=== PATIENT | male | born 1975 | race Caucasian/White ===

== ENCOUNTER 2018-06-25 07:13 | Inpatient (IN) | payer SELFPAY ==
[2018-06-25 07:39] LABS: ADD MAN DIFF? NO
[2018-06-25 07:42] LABS: WHITE BLOOD COUNT 8.7 10^3/ul (4.8-10.8)
[2018-06-25 07:42] LABS: BASOPHILS % 0.3 % (0.0-2.0); EOSINOPHILS # 0.1 10^3/ul (0.0-0.5); EOSINOPHILS % 1.1 % (0.0-7.0); HEMATOCRIT 43.5 % (42.0-52.0); HEMOGLOBIN 15.1 g/dl (14.0-18.0); LYMPHOCYTES # 1.8 10^3/ul (0.8-2.9); MEAN CORPUSCULAR HEMOGLOBIN 29.7 pg (29.0-33.0); MEAN CORPUSCULAR HGB CONC 34.7 g/dl (32.0-37.0); MEAN CORPUSCULAR VOLUME 85.5 fl (82.0-101.0); MEAN PLATELET VOLUME 9.5 fl (7.4-10.4); MONOCYTE # 0.7 10^3/ul (0.3-0.9); MONOCYTES % 7.8 % (0.0-11.0); NEUTROPHIL # 6.2 10^3/ul (1.6-7.5); NEUTROPHILS % 70.6 % (39.0-77.0); PLATELET COUNT 218 10^3/UL (140-415); RED BLOOD COUNT 5.09 10^6/ul (4.70-6.10); RED CELL DISTRIBUTION WIDTH 12.1 % (11.5-14.5)
[2018-06-25] MEDS ORDERED: ONDANSETRON 4 MG INJ (07:43)
[2018-06-25] MEDS ORDERED: morphine 4 MG/ML VIAL (07:44)
[2018-06-25 07:58] LABS: ALANINE AMINOTRANSFERASE 103 IU/L (13-69); ALBUMIN 4.5 g/dl (3.3-4.9); ALKALINE PHOSPHATASE 137 IU/L (42-121); ANION GAP 11 (5-13); ASPARTATE AMINO TRANSFERASE 98 IU/L (15-46); BILIRUBIN,INDIRECT 1.4 mg/dl (0-1.1); BILIRUBIN,TOTAL 1.4 mg/dl (0.2-1.3); BLOOD UREA NITROGEN 9 mg/dl (7-20); CALCIUM 10.1 mg/dl (8.4-10.2); CARBON DIOXIDE 27 mmol/L (21-31); CHLORIDE 99 mmol/L (97-110); CREATININE 0.68 mg/dl (0.61-1.24); Estimated GFR > 60 mL/min (>60); GLUCOSE 130 mg/dl (70-220); POTASSIUM 3.6 mmol/L (3.5-5.1); SODIUM 137 mmol/L (135-144); TOTAL PROTEIN 7.6 g/dl (6.1-8.1)
[2018-06-25 08:01] LABS: PROTIME 13.3 Sec (11.9-14.9)
[2018-06-25] MEDS: morphine 4 MG/ML VIAL IV ×2 (08:01→10:03)
[2018-06-25] MEDS: ONDANSETRON 4 MG INJ IV ×3 (08:01→17:39)
[2018-06-25 08:02] LABS: PARTIAL THROMBOPLASTIN TIME 28.5 Sec (23.0-35.0)
[2018-06-25] MEDS: IOHEXOL 300MG/ML 150 ML BTL (08:26)
[2018-06-25] MEDS: SOD CHLORIDE 0.9% 100 ML (08:26)
[2018-06-25] MEDS: SOD CHLORIDE 0.9% 1,000 ML IV ×2 (10:03→18:45)
[2018-06-25 10:23] LABS: LIPASE 3475 U/L (23-300)
[2018-06-25] MEDS ORDERED: FENTAnyl 50 MCG/ML VIAL (10:46)
[2018-06-25 11:16] LABS: ETHANOL < 10.0 mg/dl (0-0)
[2018-06-25] MEDS: FENTAnyl 50 MCG/ML VIAL IV (11:37)
[2018-06-25] MEDS ORDERED: ACETAMINOPHEN 325 MG TAB PO (12:00)
[2018-06-25] MEDS ORDERED: HYDROmorphONE 1 MG/ML SYG (13:43)
[2018-06-25] MEDS: HYDROmorphONE 0.5 MG/0.5 ML SYG IV (14:11)
[2018-06-25] MEDS ORDERED: ONDANSETRON 4 MG INJ IV (15:00)
[2018-06-25] MEDS ORDERED: NACL 0.9% 3 ML SYG IV (15:00)
[2018-06-25 15:30] LABS: HAAIG REFLEX REFLEX FILED
[2018-06-25] MEDS: HYDROmorphONE 2 MG/ML SYG IV ×3 (15:57→22:01)
[2018-06-25 16:29] LABS: HEPATITIS B SURFACE ANTIGEN NEGATIVE (NEGATIVE)
[2018-06-25 16:47] LABS: HEPATITIS B CORE ANTIBODY NEGATIVE (NEGATIVE); HEPATITIS C VIRAL ANTIBODY NEGATIVE (NEGATIVE)
[2018-06-25] MEDS: HYDROmorphONE 1 MG/ML SYG IV (17:40)
[2018-06-25] MEDS: PANTOPRAZOLE 40 MG INJ IV (18:45)
[2018-06-26] MEDS: SOD CHLORIDE 0.9% 1,000 ML IV ×5 (01:24→23:26)
[2018-06-26 05:05] LABS: ADD MAN DIFF? NO
[2018-06-26 05:16] LABS: BASOPHILS % 0.2 % (0.0-2.0); EOSINOPHILS # 0.2 10^3/ul (0.0-0.5); EOSINOPHILS % 2.6 % (0.0-7.0); HEMATOCRIT 39.9 % (42.0-52.0); HEMOGLOBIN 13.3 g/dl (14.0-18.0); LYMPHOCYTES # 1.1 10^3/ul (0.8-2.9); LYMPHOCYTES % 17.7 % (15.0-51.0); MEAN CORPUSCULAR HEMOGLOBIN 29.4 pg (29.0-33.0); MEAN CORPUSCULAR HGB CONC 33.3 g/dl (32.0-37.0); MEAN CORPUSCULAR VOLUME 88.3 fl (82.0-101.0); MEAN PLATELET VOLUME 9.9 fl (7.4-10.4); MONOCYTE # 0.4 10^3/ul (0.3-0.9); MONOCYTES % 6.9 % (0.0-11.0); NEUTROPHIL # 4.5 10^3/ul (1.6-7.5); NEUTROPHILS % 72.3 % (39.0-77.0); PLATELET COUNT 186 10^3/UL (140-415); RED BLOOD COUNT 4.52 10^6/ul (4.70-6.10); RED CELL DISTRIBUTION WIDTH 12.4 % (11.5-14.5)
[2018-06-26 05:16] LABS: WHITE BLOOD COUNT 6.2 10^3/ul (4.8-10.8)
[2018-06-26] MEDS: PANTOPRAZOLE 40 MG INJ IV ×2 (05:30→22:03)
[2018-06-26] MEDS: HYDROmorphONE 2 MG/ML SYG IV ×4 (05:33→20:32)
[2018-06-26 05:36] LABS: ALANINE AMINOTRANSFERASE 141 IU/L (13-69); ALBUMIN 3.9 g/dl (3.3-4.9); ALBUMIN/GLOBULIN RATIO 1.21; ALKALINE PHOSPHATASE 174 IU/L (42-121); ANION GAP 8 (5-13); ASPARTATE AMINO TRANSFERASE 212 IU/L (15-46); BILIRUBIN,INDIRECT 1.4 mg/dl (0-1.1); BILIRUBIN,TOTAL 1.4 mg/dl (0.2-1.3); BLOOD UREA NITROGEN 6 mg/dl (7-20); CALCIUM 9.1 mg/dl (8.4-10.2); CARBON DIOXIDE 26 mmol/L (21-31); CHLORIDE 104 mmol/L (97-110); CHOLESTEROL 165 mg/dl (100-200); CREATININE 0.64 mg/dl (0.61-1.24); Estimated GFR > 60 mL/min (>60); GLUCOSE 108 mg/dl (70-220); HDL CHOLESTEROL 41 mg/dl (27-67); LDL CHOLESTEROL,CALCULATED 31 mg/dl; LIPASE 1478 U/L (23-300); MAGNESIUM 2.1 mg/dl (1.7-2.5); PHOSPHORUS 3.2 mg/dl (2.5-4.9); POTASSIUM 4.1 mmol/L (3.5-5.1); SODIUM 138 mmol/L (135-144); TOTAL PROTEIN 7.1 g/dl (6.1-8.1); TRIGLYCERIDES 464 mg/dl (0-149)
[2018-06-26 08:01] LABS: HEMOGLOBIN A1C 6.1 % (0-5.9)
[2018-06-26] MEDS: ONDANSETRON 4 MG INJ IV (11:28)
[2018-06-26] MEDS: FISH OIL 1,000 MG CAP PO (20:32)
[2018-06-26] MEDS: GEMFIBROZIL 600 MG TAB PO (20:32)
[2018-06-27] MEDS: HYDROmorphONE 2 MG/ML SYG IV ×4 (02:26→20:31)
[2018-06-27 05:19] LABS: ADD MAN DIFF? NO
[2018-06-27 05:27] LABS: BASOPHILS % 0.3 % (0.0-2.0); EOSINOPHILS # 0.4 10^3/ul (0.0-0.5); HEMATOCRIT 39.8 % (42.0-52.0); HEMOGLOBIN 13.3 g/dl (14.0-18.0); LYMPHOCYTES # 1.7 10^3/ul (0.8-2.9); LYMPHOCYTES % 26.9 % (15.0-51.0); MEAN CORPUSCULAR HEMOGLOBIN 29.4 pg (29.0-33.0); MEAN CORPUSCULAR HGB CONC 33.4 g/dl (32.0-37.0); MEAN CORPUSCULAR VOLUME 88.1 fl (82.0-101.0); MEAN PLATELET VOLUME 10.1 fl (7.4-10.4); MONOCYTE # 0.5 10^3/ul (0.3-0.9); MONOCYTES % 7.5 % (0.0-11.0); NEUTROPHIL # 3.7 10^3/ul (1.6-7.5); NEUTROPHILS % 58.7 % (39.0-77.0); PLATELET COUNT 180 10^3/UL (140-415); RED BLOOD COUNT 4.52 10^6/ul (4.70-6.10); RED CELL DISTRIBUTION WIDTH 12.2 % (11.5-14.5)
[2018-06-27 05:27] LABS: WHITE BLOOD COUNT 6.3 10^3/ul (4.8-10.8)
[2018-06-27 05:44] LABS: ALANINE AMINOTRANSFERASE 102 IU/L (13-69); ALBUMIN 3.9 g/dl (3.3-4.9); ALBUMIN/GLOBULIN RATIO 1.11; ALKALINE PHOSPHATASE 192 IU/L (42-121); ANION GAP 11 (5-13); ASPARTATE AMINO TRANSFERASE 99 IU/L (15-46); BILIRUBIN,INDIRECT 1.1 mg/dl (0-1.1); BILIRUBIN,TOTAL 1.1 mg/dl (0.2-1.3); BLOOD UREA NITROGEN 6 mg/dl (7-20); CALCIUM 8.8 mg/dl (8.4-10.2); CARBON DIOXIDE 21 mmol/L (21-31); CHLORIDE 106 mmol/L (97-110); CREATININE 0.63 mg/dl (0.61-1.24); Estimated GFR > 60 mL/min (>60); GLUCOSE 89 mg/dl (70-220); LIPASE 670 U/L (23-300); SODIUM 138 mmol/L (135-144); TOTAL PROTEIN 7.4 g/dl (6.1-8.1)
[2018-06-27] MEDS: PANTOPRAZOLE 40 MG INJ IV ×2 (06:13→17:25)
[2018-06-27] MEDS: SOD CHLORIDE 0.9% 1,000 ML IV ×3 (06:14→20:31)
[2018-06-27] MEDS: GEMFIBROZIL 600 MG TAB PO ×2 (08:20→20:27)
[2018-06-27] MEDS: FISH OIL 1,000 MG CAP PO ×2 (08:20→20:27)
[2018-06-27] MEDS: ACETAMINOPHEN 325 MG TAB PO ×2 (08:25→17:25)
[2018-06-27] MEDS ORDERED: THIAMINE 200 MG INJ IM (13:00)
[2018-06-27] MEDS: THIAMINE 200 MG INJ IM (14:52)
[2018-06-28] MEDS: SOD CHLORIDE 0.9% 1,000 ML IV ×3 (03:06→23:22)
[2018-06-28] MEDS: PANTOPRAZOLE 40 MG INJ IV ×2 (05:56→17:59)
[2018-06-28 06:15] LABS: ALANINE AMINOTRANSFERASE 88 IU/L (13-69); ALBUMIN 3.6 g/dl (3.3-4.9); ALBUMIN/GLOBULIN RATIO 1.24; ALKALINE PHOSPHATASE 154 IU/L (42-121); ANION GAP 8 (5-13); ASPARTATE AMINO TRANSFERASE 72 IU/L (15-46); BILIRUBIN,INDIRECT 0.7 mg/dl (0-1.1); BILIRUBIN,TOTAL 0.7 mg/dl (0.2-1.3); BLOOD UREA NITROGEN 3 mg/dl (7-20); CALCIUM 9.5 mg/dl (8.4-10.2); CARBON DIOXIDE 22 mmol/L (21-31); CHLORIDE 109 mmol/L (97-110); CREATININE 0.59 mg/dl (0.61-1.24); Estimated GFR > 60 mL/min (>60); GLUCOSE 95 mg/dl (70-220); LIPASE 1148 U/L (23-300); SODIUM 139 mmol/L (135-144); TOTAL PROTEIN 6.5 g/dl (6.1-8.1)
[2018-06-28 06:29] LABS: CHOLESTEROL 195 mg/dl (100-200)
[2018-06-28 06:29] LABS: CHOL/HDL RATIO 5.1 RATIO; HDL CHOLESTEROL 38 mg/dl (27-67); LDL CHOLESTEROL,CALCULATED 110 mg/dl; TRIGLYCERIDES 234 mg/dl (0-149)
[2018-06-28] MEDS: FISH OIL 1,000 MG CAP PO ×2 (08:41→23:22)
[2018-06-28] MEDS: GEMFIBROZIL 600 MG TAB PO ×2 (08:42→23:22)
[2018-06-28] MEDS: THIAMINE 100 MG TAB PO (08:42)
[2018-06-28] MEDS: ACETAMINOPHEN 325 MG TAB PO (18:01)
[2018-06-29] MEDS: ZOLPIDEM 5 MG TAB PO (02:17)
[2018-06-29 05:41] LABS: ALANINE AMINOTRANSFERASE 90 IU/L (13-69); ALBUMIN 4.1 g/dl (3.3-4.9); ALBUMIN/GLOBULIN RATIO 1.28; ALKALINE PHOSPHATASE 144 IU/L (42-121); ANION GAP 9 (5-13); ASPARTATE AMINO TRANSFERASE 74 IU/L (15-46); BILIRUBIN,INDIRECT 0.7 mg/dl (0-1.1); BILIRUBIN,TOTAL 0.7 mg/dl (0.2-1.3); BLOOD UREA NITROGEN 5 mg/dl (7-20); CARBON DIOXIDE 23 mmol/L (21-31); CHLORIDE 108 mmol/L (97-110); CREATININE 0.69 mg/dl (0.61-1.24); Estimated GFR > 60 mL/min (>60); GLUCOSE 120 mg/dl (70-220); LIPASE 1092 U/L (23-300); POTASSIUM 3.9 mmol/L (3.5-5.1); SODIUM 140 mmol/L (135-144); TOTAL PROTEIN 7.3 g/dl (6.1-8.1)
[2018-06-29] MEDS: THIAMINE 100 MG TAB PO (11:02)
[2018-06-29] MEDS: SOD CHLORIDE 0.9% 500 ML IV (11:02)
[2018-06-29] MEDS: FISH OIL 1,000 MG CAP PO ×2 (11:02→21:53)
[2018-06-29] MEDS: PANTOPRAZOLE 40 MG INJ IV ×2 (11:02→17:53)
[2018-06-29] MEDS: SOD CHLORIDE 0.9% 1,000 ML IV ×2 (12:12→23:29)
[2018-06-29] MEDS: hydrALAzine 20 MG INJ IV (21:53)
[2018-06-29] MEDS: ACETAMINOPHEN 325 MG TAB PO (23:28)
[2018-06-30] MEDS: traZODone 50 MG TAB PO (02:01)
[2018-06-30] MEDS: PANTOPRAZOLE 40 MG INJ IV ×2 (05:21→19:33)
[2018-06-30 06:24] LABS: LIPASE 1055 U/L (23-300)
[2018-06-30 06:28] LABS: ALANINE AMINOTRANSFERASE 76 IU/L (13-69); ALBUMIN 4.1 g/dl (3.3-4.9); ALKALINE PHOSPHATASE 141 IU/L (42-121); ANION GAP 11 (5-13); ASPARTATE AMINO TRANSFERASE 64 IU/L (15-46); BILIRUBIN,INDIRECT 0.8 mg/dl (0-1.1); BILIRUBIN,TOTAL 0.8 mg/dl (0.2-1.3); BLOOD UREA NITROGEN 7 mg/dl (7-20); CALCIUM 9.7 mg/dl (8.4-10.2); CARBON DIOXIDE 21 mmol/L (21-31); CHLORIDE 111 mmol/L (97-110); CREATININE 0.66 mg/dl (0.61-1.24); Estimated GFR > 60 mL/min (>60); GLUCOSE 98 mg/dl (70-220); POTASSIUM 3.4 mmol/L (3.5-5.1); SODIUM 143 mmol/L (135-144); TOTAL PROTEIN 7.5 g/dl (6.1-8.1)
[2018-06-30 06:29] LABS: AMYLASE 152 U/L (11-123)
[2018-06-30] MEDS: THIAMINE 100 MG TAB PO (10:02)
[2018-06-30] MEDS: FISH OIL 1,000 MG CAP PO ×2 (10:03→20:26)
[2018-06-30] MEDS: SOD CHLORIDE 0.9% 1,000 ML IV (13:56)
[2018-06-30] MEDS: ACETAMINOPHEN 325 MG TAB PO (22:13)
[2018-07-01 06:02] LABS: ALANINE AMINOTRANSFERASE 76 IU/L (13-69); ALBUMIN/GLOBULIN RATIO 1.33; ALKALINE PHOSPHATASE 114 IU/L (42-121); ANION GAP 10 (5-13); ASPARTATE AMINO TRANSFERASE 55 IU/L (15-46); BILIRUBIN,INDIRECT 0.8 mg/dl (0-1.1); BILIRUBIN,TOTAL 0.8 mg/dl (0.2-1.3); BLOOD UREA NITROGEN 7 mg/dl (7-20); CALCIUM 9.9 mg/dl (8.4-10.2); CARBON DIOXIDE 24 mmol/L (21-31); CHLORIDE 109 mmol/L (97-110); CREATININE 0.72 mg/dl (0.61-1.24); Estimated GFR > 60 mL/min (>60); GLUCOSE 106 mg/dl (70-220); LIPASE 1323 U/L (23-300); POTASSIUM 3.7 mmol/L (3.5-5.1); SODIUM 143 mmol/L (135-144)
[2018-07-01] MEDS: FISH OIL 1,000 MG CAP PO ×2 (09:14→20:11)
[2018-07-01] MEDS: THIAMINE 100 MG TAB PO (09:15)
[2018-07-01] MEDS: FAMOTIDINE 20 MG INJ IV (09:17)
[2018-07-01] MEDS ORDERED: THIAMINE 100 MG TAB PO (09:30)
[2018-07-01] MEDS: SOD CHLORIDE 0.9% 1,000 ML IV (09:31)
[2018-07-01] MEDS: CREON (12k-38k-60k) 1 CAP PO ×2 (12:23→17:54)
[2018-07-01] MEDS: IOHEXOL 300MG/ML 150 ML BTL (12:24)
[2018-07-01] MEDS: SOD CHLORIDE 0.9% 100 ML (12:25)
[2018-07-01] MEDS: FAMOTIDINE 20 MG TAB PO (20:12)
[2018-07-02] MEDS: FISH OIL 1,000 MG CAP PO (08:48)
[2018-07-02] MEDS: THIAMINE 100 MG TAB PO (08:48)
[2018-07-02] MEDS: FAMOTIDINE 20 MG TAB PO (08:48)
[2018-07-02] MEDS: CREON (12k-38k-60k) 1 CAP PO (08:48)
== END 2018-07-02 11:27 | disposition home or self-care (01) | DRG 439 ==
LOC: E/R 07:13 → MS1 11:41
DX: K85.80 Other acute pancreatitis without necrosis or infection (principal); S22.31XA Fracture of one rib, right side, initial encounter for closed fracture; V19.9XXA Pedal cyclist (driver) (passenger) injured in unspecified traffic accident, initial encounter; R10.84 Generalized abdominal pain; E80.6 Other disorders of bilirubin metabolism; K29.80 Duodenitis without bleeding; K76.0 Fatty (change of) liver, not elsewhere classified; F10.10 Alcohol abuse, uncomplicated; R11.2 Nausea with vomiting, unspecified; R73.02 Impaired glucose tolerance (oral)
CPT/HCPCS: 71260; 74160; 74177; 74181; 76705; 80048; 80053; 80061; 80076; 80307; 82150; 82787; 83036; 83690; 83735; 84100; 85025; 85610; 85730; 86704; 86709; 86803; 87340; 96361; 96374; 96375; 96376; 99285-25